=== PATIENT | female | born 1960 | race American Indian/Alaskan Native ===

== ENCOUNTER 2016-09-22 13:04 | Emergency (ER) | payer MEDICARE ==
[2016-09-22 13:14] VITALS: BP 153/88
--- NOTE | 2016-09-22 16:50 | Emergency Department Report ---
Entered by JORDIN ROQUE, acting as scribe for IONA BAUGH PA. ED General Adult HPI - General Chief complaint: Pain General Stated complaint: BODY ACHES Time Seen by Provider: 09/22/16 15:07 Source: patient Mode of arrival: Ambulatory Limitations: No Limitations - History of Present Illness Initial comments: 55 year old female with Hx of seasonal allergies presents to the ED for body aches and associated sore throat, rhinorrhea, nasal congestion, and mild headache for 3 days. Patient also reports eye irritation. Patient self administered Motirn 800 mg at home with mild relief of symptoms. Reports sick contact with grandchildren who had viral infection. Denies fever, chills, abdominal pain, nausea, and vomiting. She also reports PSHx right shoulder and left ankle. -: days(s) (3) Quality: aching, constant Consistency: constant Improves with: medication (Motrin 800 mg, mild relief) Worsens with: none Associated Symptoms: headaches (mild), other (body aches, sore throat, nasal congestion, rhinorrhea, eye irritation, ). denies: chest pain, cough, fever/ chills, nausea/vomiting, shortness of breath Treatments Prior to Arrival: NSAID (Motrin 800 mg) - Related Data Home Medications Medication Instructions Recorded Confirmed Last Taken traMADol [Ultram 50 MG tab] 50 mg PO PRN PRN 08/15/16 Unknown Previous Rx's Medication Instructions Recorded Last Taken Type Loratadine [Claritin] 10 mg PO DAILY #30 tablet 10/24/13 Unknown Rx Ibuprofen [Motrin] 800 mg PO Q8HR PRN #15 tablet 01/19/16 Unknown Rx Allergies Allergy/AdvReac Type Severity Reaction Status Date / Time No Known Allergies Allergy Verified 05/03/13 12:00 ED Review of Systems Comment: All other systems reviewed and negative Constitutional: other (body aches). denies: chills, fever Eyes: other (eye irritation) ENT: ear pain (bilateral, mild), throat pain, congestion (sinus congestion, rhinorrhea) Respiratory: denies: cough, shortness of breath Cardiovascular: denies: chest pain Gastrointestinal: denies: abdominal pain, nausea, vomiting Neurological: headache (mild) ED Past Medical Hx - Past Medical History Previous Medical History?: Yes Hx Hypertension: Yes Additional medical history: Right torn rotator cuff - Surgical History Past Surgical History?: Yes Additional Surgical History: hysterectomy, left ankle surgery, right shoulder repair - Social History Smoking Status: Current Every Day Smoker Substance Use Type: None - Medications Home Medications: Home Medications Medication Instructions Recorded Confirmed Last Taken Type Loratadine [Claritin] 10 mg PO DAILY #30 tablet 10/24/13 08/15/16 Unknown Rx Ibuprofen [Motrin] 800 mg PO Q8HR PRN #15 tablet 01/19/16 08/15/16 Unknown Rx traMADol [Ultram 50 MG tab] 50 mg PO PRN PRN 08/15/16 Unknown History ED Physical Exam - General Limitations: No Limitations General appearance: alert, in no apparent distress - Head Head exam: Present: atraumatic, normocephalic - Eye Eye exam: Present: PERRL, EOMI - ENT ENT exam: Present: mucous membranes moist - Expanded ENT Exam Expanded TM/Canal exam: Effusion: Left TM (fluid behind typanic membrane, appears to be sinus related) Mouth exam: Present: normal external inspection, tongue normal. Absent: drooling, tongue elevation Throat exam: Positive: tonsillar erythema (mild), tonsillomegaly. Negative: tonsillar exudate - Neck Neck exam: Present: normal inspection, full ROM. Absent: meningismus, lymphadenopathy, thyromegaly - Respiratory Respiratory exam: Present: normal lung sounds bilaterally. Absent: respiratory distress, wheezes, rales, rhonchi - Cardiovascular Cardiovascular Exam: Present: regular rate, normal rhythm, normal heart sounds. Absent: systolic murmur, diastolic murmur, rubs - GI/Abdominal GI/Abdominal exam: Present: soft. Absent: distended, tenderness, guarding, rebound - Neurological Exam Neurological exam: Present: alert, oriented X3 - Psychiatric Psychiatric exam: Present: normal affect, normal mood - Skin Skin exam: Present: warm, dry, intact. Absent: rash, cyanosis ED Course Vital Signs 09/22/16 13:08 Temperature 98.6 F Pulse Rate 81 Respiratory 18 Rate Blood Pressure 153/88 O2 Sat by Pulse 100 Oximetry ED Medical Decision Making - Lab Data Vital Signs 09/22/16 13:08 Temperature 98.6 F Pulse Rate 81 Respiratory 18 Rate Blood Pressure 153/88 O2 Sat by Pulse 100 Oximetry Microbiology 09/22/16 Unknown Group A Streptococcus Rapid Screen - Final Throat - Medical Decision Making Patient has been evaluated in the fast track area of the ED by this provider. Rapid strep is negative. Throat culture is pending. ED Disposition Clinical Impression: Generalized pain Disposition: ELOPED Is pt being admited?: No Does the pt Need Aspirin: No Condition: Stable Referrals: PRIMARY CARE,MD [Primary Care Provider] - 3-5 Days This documentation as recorded by the MYA velasquez REBEKAH,accurately reflects the service I personally performed and the decisions made by me,IONA BAUGH PA.
== END 2016-09-22 15:10 | disposition left against medical advice (07) ==
LOC: ED 13:04
DX: M79.1 Myalgia (principal); I10 Essential (primary) hypertension; F17.200 Nicotine dependence, unspecified, uncomplicated
CPT/HCPCS: 87116; 87430; 99281

== ENCOUNTER 2016-11-14 13:19 | Emergency (ER) | payer MEDICARE ==
[2016-11-14 14:03] VITALS: BP 133/82
--- NOTE | 2016-11-14 15:18 | Emergency Department Report ---
ED Extremity Problem HPI - General Chief complaint: Pain General Stated complaint: SHOULDER/FOOT PAIN Time Seen by Provider: 11/14/16 15:00 Source: patient Mode of arrival: Ambulatory Limitations: No Limitations - History of Present Illness Initial comments: PT states she has had L shoulder pain for months. 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 PT states she had a torn rotator cuff in her R shoulder and her L shoulder feels the same. PT denies any shoulder injury. PT states that in she broke her R ankle. PT states she was being seen by ortho and she was cleared from her walking boot last month but her pain persists. PT states that her L shoulder and R ankle pain have been progressively getting worse x 2 weeks. PT states last week she made an appointment with an ortho group in [facility] and when she showed up, she was told that she could not be seen due to the fact that she did not have a referral. PT states she is taking Motrin for her pain but she is not getting relief. MD Complaint: extremity pain Onset/Timin -: Gradual, week(s) (of gradually worsening pain ) Location: left, right, lower extremity History of Same: Yes Severity scale (0 -10): 10 Quality: constant Consistency: constant Improves with: nothing Worsens with: walking, other (lifting 4 year old granddaughter increases shoulder pain ) Associated Symptoms: denies other symptoms. denies: chest pain, shortness of breath - Related Data Previous Rx's Medication Instructions Recorded Last Taken Type Loratadine [Claritin] 10 mg PO DAILY #30 tablet 10/24/13 Unknown Rx Ibuprofen [Motrin] 800 mg PO Q8HR PRN #15 tablet 01/19/16 Unknown Rx traMADol [Ultram] 50 mg PO Q6HR PRN #15 tablet 11/14/16 Unknown Rx Allergies Allergy/AdvReac Type Severity Reaction Status Date / Time No Known Allergies Allergy Verified 05/03/13 12:00 ED Review of Systems ROS: Stated complaint: SHOULDER/FOOT PAIN Other details as noted in HPI Comment: All other systems reviewed and negative Constitutional: denies: chills, fever Cardiovascular: denies: chest pain Gastrointestinal: denies: abdominal pain, nausea, vomiting, hematemesis, melena , hematochezia Genitourinary: denies: dysuria Musculoskeletal: as per HPI ED Past Medical Hx - Past Medical History Previous Medical History?: Yes Hx Hypertension: Yes Additional medical history: Right torn rotator cuff - Surgical History Past Surgical History?: Yes Additional Surgical History: hysterectomy, left ankle surgery, right shoulder repair - Social History Smoking Status: Current Every Day Smoker Substance Use Type: Alcohol, Prescribed - Medications Home Medications: Home Medications Medication Instructions Recorded Confirmed Last Taken Type Loratadine [Claritin] 10 mg PO DAILY #30 tablet 10/24/13 08/15/16 Unknown Rx Ibuprofen [Motrin] 800 mg PO Q8HR PRN #15 tablet 01/19/16 08/15/16 Unknown Rx traMADol [Ultram] 50 mg PO Q6HR PRN #15 tablet 11/14/16 Unknown Rx ED Physical Exam - General Limitations: No Limitations General appearance: alert, in no apparent distress - Head Head exam: Present: atraumatic, normocephalic, normal inspection - Eye Eye exam: Present: normal appearance, PERRL, EOMI. Absent: conjunctival injection - Neck Neck exam: Present: normal inspection, tenderness, full ROM, other (L trapizeus tenderness ). Absent: meningismus - Respiratory Respiratory exam: Present: normal lung sounds bilaterally. Absent: respiratory distress, chest wall tenderness - Cardiovascular Cardiovascular Exam: Present: regular rate, normal rhythm - GI/Abdominal GI/Abdominal exam: Present: soft. Absent: tenderness - Extremities Exam Extremities exam: Present: normal inspection, full ROM - Expanded Upper Extremity Exam Left Shoulder Exam: Present: normal inspection, full ROM, tenderness (L trap, L ant shoulder ). Absent: swelling, ecchymosis, deformity, crepidus, dislocation, tenderness over AC joint Elbow exam: Present: normal inspection, full ROM - Expanded Lower Extremity Exam Right Knee exam: Present: normal inspection, full ROM. Absent: tenderness Lower Leg exam: Present: normal inspection. Absent: Franklin's sign Ankle exam: Present: normal inspection, full ROM, tenderness (ant ankle ) Gait: Positive: observed and normal - Back Exam Back exam: Present: normal inspection, full ROM. Absent: tenderness, CVA tenderness (R), CVA tenderness (L), muscle spasm, paraspinal tenderness, vertebral tenderness - Neurological Exam Neurological exam: Present: alert, oriented X3, normal gait - Psychiatric Psychiatric exam: Present: normal affect, normal mood - Skin Skin exam: Present: warm, dry, intact, normal color ED Course Vital Signs 11/14/16 13:59 Temperature 98.5 F Pulse Rate 73 Respiratory 20 Rate Blood Pressure 133/82 O2 Sat by Pulse 100 Oximetry - Reevaluation(s) Reevaluation #1: 11/14/16 15:22 Pt offered XRs to further evaluate her painful joints, however, pt declined. PT states she only wants a referral for ortho. PT aware that her insurance may require that referral to come from a PCP but a referral to ortho can be given. PT aware no driving or ETOH after taking Ultram - Pulse Oximetry Interpretation Digit-Finger Initial Pulse Oximetry Readin Actions Taken: none ED Medical Decision Making - Differential Diagnosis oa, strain, muscle spasm Critical Care Time: No Critical care attestation.: If time is entered above; I have spent that time in minutes in the direct care of this critically ill patient, excluding procedure time. ED Disposition Clinical Impression: Right ankle pain Qualifiers: Chronicity: acute Qualified Code(s): M25.571 - Pain in right ankle and joints of right foot Left shoulder pain Qualifiers: Chronicity: acute Qualified Code(s): M25.512 - Pain in left shoulder Disposition: DISCHARGED TO HOME OR SELFCARE Is pt being admited?: No Does the pt Need Aspirin: No Condition: Stable Instructions: Arthralgia (ED) Additional Instructions: Follow up with ORTHO in 3-5 days No driving or ETOH after taking Ultram Prescriptions: traMADol [Ultram] 50 mg PO Q6HR PRN #15 tablet PRN Reason: Pain Referrals: PRIMARY MD NAILA [Primary Care Provider] - 3-5 Days JAMIA CASTAÑEDA MD [Staff Physician] - 3-5 Days MARY JANE ORTIZ MD [Staff Physician] - 3-5 Days Time of Disposition: 15:25
== END 2016-11-14 15:29 | disposition home or self-care (01) ==
LOC: ED 13:19
DX: M25.571 Pain in right ankle and joints of right foot (principal); M25.512 Pain in left shoulder; I10 Essential (primary) hypertension; F17.200 Nicotine dependence, unspecified, uncomplicated
CPT/HCPCS: 99282

== ENCOUNTER 2017-03-15 04:11 | Emergency (ER) | payer MEDICARE ==
[2017-03-15] MEDS ORDERED: ULTRAM PO ONE (06:15)
--- NOTE | 2017-03-15 06:34 | Emergency Department Report ---
ED General Adult HPI - General Chief complaint: Extremity Injury, Upper Stated complaint: SHOULDER, FOOT, HAND PAIN Source: patient Mode of arrival: Ambulatory Limitations: No Limitations - History of Present Illness Initial comments: 56 year old male presents to ED with pain in right wrist, right foot and left shoulder x2 weeks. patient states she hit right foot on desk at work and had xray at [facility] which showed no acute pathology. patient states [facility] only gave her motrin and would not give her tramadol and she would like tramadol today as a RX for her pain. patient states she had left shoulder surgery for rotator cuff months ago and has occasional pain exacerbations. patient is stable , neurologically intact and in no acute distress. patient denies new injury/ trauma to any area. patient has no tenderness to on exam to right wrist, right foot or left shoulder. patient states she gets tramadol every time she goes to the ED. patient is ambulatory with normal observed gait. -: Gradual, week(s) (2) Location: right, upper extremity (right wrist), lower extremity (right foot) Quality: aching Consistency: intermittent Improves with: medication (tramadol) Associated Symptoms: denies other symptoms - Related Data Previous Rx's Medication Instructions Recorded Last Taken Type Loratadine [Claritin] 10 mg PO DAILY #30 tablet 10/24/13 Unknown Rx Ibuprofen [Motrin] 800 mg PO Q8HR PRN #15 tablet 01/19/16 Unknown Rx traMADol [Ultram] 50 mg PO Q6HR PRN #15 tablet 11/14/16 Unknown Rx Meloxicam [Mobic] 7.5 mg PO QDAY #7 tablet 03/15/17 Unknown Rx Allergies Allergy/AdvReac Type Severity Reaction Status Date / Time No Known Allergies Allergy Verified 05/03/13 12:00 ED Review of Systems ROS: Stated complaint: SHOULDER, FOOT, HAND PAIN Other details as noted in HPI Constitutional: denies: chills, fever Eyes: denies: eye pain, eye discharge, vision change ENT: denies: ear pain, throat pain Respiratory: denies: cough, shortness of breath, wheezing Cardiovascular: denies: chest pain, palpitations Endocrine: no symptoms reported Gastrointestinal: denies: abdominal pain, nausea, diarrhea Genitourinary: denies: urgency, dysuria, discharge Musculoskeletal: arthralgia. denies: back pain, joint swelling Skin: denies: rash, lesions Neurological: denies: headache, weakness, paresthesias Psychiatric: denies: anxiety, depression Hematological/Lymphatic: denies: easy bleeding, easy bruising ED Past Medical Hx - Past Medical History Hx Hypertension: Yes Additional medical history: Right torn rotator cuff - Surgical History Additional Surgical History: hysterectomy, left ankle surgery, right shoulder repair - Social History Smoking Status: Current Every Day Smoker Substance Use Type: None - Medications Home Medications: Home Medications Medication Instructions Recorded Confirmed Last Taken Type Loratadine [Claritin] 10 mg PO DAILY #30 tablet 10/24/13 08/15/16 Unknown Rx Ibuprofen [Motrin] 800 mg PO Q8HR PRN #15 tablet 01/19/16 08/15/16 Unknown Rx traMADol [Ultram] 50 mg PO Q6HR PRN #15 tablet 11/14/16 Unknown Rx Meloxicam [Mobic] 7.5 mg PO QDAY #7 tablet 03/15/17 Unknown Rx ED Physical Exam - General Limitations: No Limitations General appearance: alert, in no apparent distress - Head Head exam: Present: atraumatic, normocephalic - Eye Eye exam: Present: normal appearance, EOMI - ENT ENT exam: Present: mucous membranes moist - Neck Neck exam: Present: normal inspection - Respiratory Respiratory exam: Present: normal lung sounds bilaterally. Absent: respiratory distress, wheezes, rales, rhonchi - Cardiovascular Cardiovascular Exam: Present: regular rate, normal rhythm. Absent: systolic murmur, diastolic murmur, rubs, gallop - GI/Abdominal GI/Abdominal exam: Present: soft, normal bowel sounds. Absent: distended, tenderness, guarding, rebound - Extremities Exam Extremities exam: Present: normal inspection, full ROM. Absent: tenderness - Back Exam Back exam: Present: normal inspection, full ROM. Absent: tenderness - Neurological Exam Neurological exam: Present: alert, oriented X3, normal gait - Psychiatric Psychiatric exam: Present: normal affect, normal mood - Skin Skin exam: Present: warm, dry, intact, normal color. Absent: rash ED Course Vital Signs 03/15/17 03/15/17 04:16 06:42 Temperature 98.0 F 98 F Pulse Rate 86 79 Respiratory 18 Rate Blood Pressure 125/97 Blood Pressure 120/79 [Left] O2 Sat by Pulse 100 100 Oximetry ED Medical Decision Making - Medical Decision Making 56 year old female presents to ED with right wrist, right foot and left shoulder pain x 2 weeks. patient states she was seen in ED at [facility] and recieved imaging studies. patient is stable, neurologically intact and in no acute distress. patient is requesting RX for tramadol. patient will be referred to Dr. Cm appiah for further evaluation. patient will be given RX for NSAIDS. patient has no tenderness to palpation of wrist,foot, or shoulder and has Full ROM of all extremities. Critical care attestation.: If time is entered above; I have spent that time in minutes in the direct care of this critically ill patient, excluding procedure time. ED Disposition Clinical Impression: Foot pain, right Disposition: DC-01 TO HOME OR SELFCARE Is pt being admited?: No Does the pt Need Aspirin: No Condition: Stable Instructions: Arthralgia (ED) Prescriptions: Meloxicam [Mobic] 7.5 mg PO QDAY #7 tablet Referrals: JONATAN PARRISH MD [Staff Physician] - 2-3 Days Forms: Work/School Release Form(ED)
[2017-03-15 06:43] VITALS: BP 120/79
== END 2017-03-15 06:43 | disposition home or self-care (01) ==
LOC: ED 04:11
DX: M25.512 Pain in left shoulder (principal); M79.671 Pain in right foot; I10 Essential (primary) hypertension; F17.210 Nicotine dependence, cigarettes, uncomplicated
CPT/HCPCS: 99282

== ENCOUNTER 2017-04-08 13:05 | Outpatient (CLI) | payer MEDICARE ==
--- NOTE | 2017-04-09 10:26 | Mammography Report ---
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 COMPARISON:03/13/16 FINDINGS: There are scattered areas of fibroglandular density.Stable bilateral benign scar. No new mass, architectural distortion or suspicious calcifications. IMPRESSION: No mammographic evidence of malignancy. BI-RADS CATEGORY: 2 -- Benign RECOMMENDATION: Routine mammographic screening in one year. COMMENT: Patient follow-up letters are generated by our [employer] application.
== END 2017-04-08 13:06 | disposition home or self-care (01) ==
LOC: SPVWC 13:05
PROVIDERS: ATTEND Surgery
DX: Z12.31 Encounter for screening mammogram for malignant neoplasm of breast (principal)
CPT/HCPCS: 77067; G0202

== ENCOUNTER 2017-05-20 09:08 | Outpatient (CLI) | payer MEDICARE ==
--- NOTE | 2017-05-20 09:59 | XRay Report ---
Right foot: Pain. There is a fracture through the mid proximal fourth phalanx. The fracture is relatively aligned but somewhat comminuted. There is evidence of periosteal new bone formation. Degenerative spurring and virtual loss of the joint space is noted at the first MP joint. A bone or joint findings otherwise appear generally unremarkable. No significant swelling is noted. Impressions: 1. Fourth digit fracture with findings indicating a recent but not acute fracture. 2. Significant first MP joint degenerative disease.
== END 2017-05-20 09:09 | disposition home or self-care (01) ==
LOC: SPVIMAG 09:08
PROVIDERS: ATTEND Orthopaedic Surgery
DX: S92.511A Displaced fracture of proximal phalanx of right lesser toe(s), initial encounter for closed fracture (principal); M19.071 Primary osteoarthritis, right ankle and foot; X58.XXXA Exposure to other specified factors, initial encounter; Y93.89 Activity, other specified; Y92.89 Other specified places as the place of occurrence of the external cause; Y99.8 Other external cause status

== ENCOUNTER 2017-05-29 12:43 | Outpatient (CLI) | payer MEDICARE ==
--- NOTE | 2017-05-29 16:03 | XRay Report ---
XRAY RIGHT HAND THREE VIEWS: 05/29/17 12:43:00 CLINICAL: Right hand pain. FINDINGS: Mild periarticular osteopenia. Mild osteoarthritis at the basal joint of the thumb. The rest of the joint spaces are normal. No fracture or dislocation. The carpal bones are intact. The distal radius and ulna are normal. Soft tissues. IMPRESSION: Minimal arthritis.
== END 2017-05-29 12:44 | disposition home or self-care (01) ==
LOC: SPVIMAG 12:43
PROVIDERS: ATTEND Orthopaedic Surgery
DX: M19.041 Primary osteoarthritis, right hand (principal); M18.9 Osteoarthritis of first carpometacarpal joint, unspecified; M85.841 Other specified disorders of bone density and structure, right hand

== ENCOUNTER 2018-04-15 12:32 | Outpatient (CLI) | payer MEDICARE ==
--- NOTE | 2018-04-15 12:58 | Mammography Report ---
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 COMPARISON:04/08/17 FINDINGS: The breast mostly fatty with bilateral scattered areas of fibroglandular density. No new mass, architectural distortion or suspicious calcifications. IMPRESSION: No mammographic evidence of malignancy. BI-RADS CATEGORY: 2 -- Benign RECOMMENDATION: Routine mammographic screening in one year. COMMENT: Patient follow-up letters are generated by our [employer] application.
== END 2018-04-15 12:33 | disposition home or self-care (01) ==
LOC: SPVWC 12:32
PROVIDERS: ATTEND Surgery
DX: Z12.31 Encounter for screening mammogram for malignant neoplasm of breast (principal); I10 Essential (primary) hypertension; Z90.710 Acquired absence of both cervix and uterus; Z87.891 Personal history of nicotine dependence
CPT/HCPCS: 77067

== ENCOUNTER 2019-04-21 12:13 | Outpatient (CLI) | payer MEDICARE ==
--- NOTE | 2019-04-22 13:15 | Mammography Report ---
DIGITAL SCREENING MAMMOGRAM WITH CAD, 04/21/2019 INDICATION: Routine screening mammography. Status post bilateral benign surgical excision. 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 TECHNIQUE: Digital bilateral 2D mammography was obtained in the craniocaudal and mediolateral obliq ue projections. This examination was interpreted with the benefit of Computer-Aided Detection analysi s. COMPARISON: 04/15/2018 FINDINGS: Breast Density: The breasts are heterogeneously dense, which may obscure small masses. There is no evidence of new mass, suspicious calcifications or architectural distortion in either shin ast. A stable right lower oval circumscribed mass. Benign right upper outer postsurgical scar. Stable left postsurgical scar. IMPRESSION: No mammographic evidence of malignancy. Follow up recommendation: Routine yearly BI-RADS Category 2: Benign. A "normal" or negative report should not discourage follow up or biopsy of a clinically significant f inding. A written summary of these findings will be mailed to the patient. The patient will be entered into a mammography reporting system which will generate a reminder letter for the patient's next appointmen t at the appropriate interval. The [employer] recommends yearly mammograms starting at age 40 and continuing as l saige as a woman is in good health. Breast MRI is recommended for women with an approximate 20-25% or greater lifetime risk of breast cancer, including women with a strong family history of breast or ova bladimir cancer or who have been treated for Hodgkin's disease. Signer Name: Raheel Gale MD Signed: 04/22/2019 1:10 PM Workstation Name: [id number]
== END 2019-04-21 12:14 | disposition home or self-care (01) ==
LOC: SPVWC 12:13
PROVIDERS: ATTEND Surgery
DX: Z12.31 Encounter for screening mammogram for malignant neoplasm of breast (principal)
CPT/HCPCS: 77067

== ENCOUNTER 2020-04-26 11:02 | Outpatient (CLI) | payer MEDICARE ==
--- NOTE | 2020-04-26 16:53 | Mammography Report ---
DIGITAL SCREENING MAMMOGRAM WITH CAD, 04/26/2020 CLINICAL INFORMATION / INDICATION: Routine screening mammography. TECHNIQUE: Digital bilateral 2D mammography was obtained in the craniocaudal and mediolateral obliqu e projections. This examination was interpreted with the benefit of Computer-Aided Detection analysis . COMPARISON: 04/21/2019, 04/15/2018 FINDINGS: Breast Density: There are scattered areas of fibroglandular density. No dominant mass, suspicious calcifications, or architectural distortion in either breast. Bilateral benign nodularity and calcifications are again seen with bilateral postoperative scarring. IMPRESSION: No mammographic evidence of malignancy. Follow up recommendation: Routine yearly BI-RADS Category 2: Benign. A "normal" or negative report should not discourage follow up or biopsy of a clinically significant f inding. A written summary of these findings will be mailed to the patient. The patient will be entered into a mammography reporting system which will generate a reminder letter for the patient's next appointmen t at the appropriate interval. The [employer] recommends yearly mammograms starting at age 40 and continuing as l saige as a woman is in good health. Breast MRI is recommended for women with an approximate 20-25% or greater lifetime risk of breast cancer, including women with a strong family history of breast or ova bladimir cancer or who have been treated for Hodgkin's disease. Signer Name: Delvin Dominique MD Signed: 04/26/2020 4:48 PM Workstation Name: [id number]
== END 2020-04-26 11:03 | disposition home or self-care (01) ==
LOC: SPVWC 11:02
PROVIDERS: ATTEND Surgery
DX: Z12.31 Encounter for screening mammogram for malignant neoplasm of breast (principal)
CPT/HCPCS: 77067

== ENCOUNTER 2021-07-10 11:13 | Outpatient (CLI) | payer MEDICARE ==
--- NOTE | 2021-07-11 08:02 | Mammography Report ---
DIGITAL SCREENING MAMMOGRAM WITH CAD, 07/10/2021 CLINICAL INFORMATION / INDICATION: Routine screening TECHNIQUE: Digital bilateral 2D mammography was obtained in the craniocaudal and mediolateral obliqu e projections. This examination was interpreted with the benefit of Computer-Aided Detection analysis . COMPARISON: 04/26/2020 FINDINGS: Breast Density: There are scattered areas of fibroglandular density. No dominant mass, suspicious calcifications, or architectural distortion in either breast. Bilateral surgical changes are again seen. Bilateral nodularity is stable. IMPRESSION: No mammographic evidence of malignancy. Follow up recommendation: Routine yearly BI-RADS Category 2: BENIGN. A "normal" or negative report should not discourage follow up or biopsy of a clinically significant f inding. A written summary of these findings will be mailed to the patient. The patient will be entered into a mammography reporting system which will generate a reminder letter for the patient's next appointmen t at the appropriate interval. The [employer] recommends yearly mammograms starting at age 40 and continuing as l saige as a woman is in good health. Breast MRI is recommended for women with an approximate 20-25% or greater lifetime risk of breast cancer, including women with a strong family history of breast or ova bladimir cancer or who have been treated for Hodgkin's disease. Signer Name: Justyn Zayas MD Signed: 07/11/2021 7:58 AM Workstation Name: [id number]
== END 2021-07-10 11:14 | disposition home or self-care (01) ==
LOC: MAMMO 11:13
PROVIDERS: ATTEND Family Medicine
DX: Z12.31 Encounter for screening mammogram for malignant neoplasm of breast (principal)
CPT/HCPCS: 77067